=== PATIENT | male | born 1975 | race Caucasian/White ===

== ENCOUNTER → 2023-08-27 | Outpatient (REF) | payer OTHER ==
[~2023-08-27] MED LIST: ATORVASTATIN CA80 MG PO; CARVEDILOL3.125 MG PO; CHOLESTEROL MED PO; CIPRO500 MG PO; CLOPIDOGREL75 MG PO; DOXYCYCLINE HY100 MG PO; FARXIGA5 MG PO; FUROSEMIDE20 MG PO; GLIMEPIRIDE1 MG PO; JENTADUETO 2.51 EACH PO; LOSARTAN POTASS50 MG PO; PRAVASTATIN SOD10 MG PEG; TRULICITY PO; ULTRAM 50MG50 MG PO; VITAMIN D400 UNIT PO
== END ==
LOC: WCC 08:35
PROVIDERS: ATTEND Nurse Practitioner Family
DX: E11.52 Type 2 diabetes mellitus with diabetic peripheral angiopathy with gangrene (principal); E11.621 Type 2 diabetes mellitus with foot ulcer; M86.171 Other acute osteomyelitis, right ankle and foot; L97.518 Non-pressure chronic ulcer of other part of right foot with other specified severity; R60.0 Localized edema

== ENCOUNTER → 2023-09-28 | Day surgery (SDC) | payer OTHER ==
[~2023-09-28] MED LIST changes: +ASPIRIN81 MG PO; +DEXAMETHASONE SOD PHOS INJ 4 MG/ML SDV ONE; +FENTANYL CITRATE/PF 100MCG/2 ML INJ ONE; +HYDROCODONE/APAP 7.5MG-325MG 1 EA TAB ONE; +LIDOCAINE HCL 2% LOCAL INJ 5 ML SDV VIAL INJ ONE; +MEROPENEM1 GM IV; +MIDAZOLAM HCL 2 MG/2 ML VIAL ONE; +NOVOLOG100 UNIT/1 SC; +ONDANSETRON HCL INJ 2MG/ML 2ML 2 MG/ML VIAL ONE; +PROPOFOL IV EMULSION 10 MG/ML 20 ML VIAL ONE; +SEVOFLURANE INHAL SOLN 250 ML PEN BTL ONE
[2023-09-28 10:35] LABS: BASOPHILS % 0.6 % (0.0-1.0); EOSINOPHILS # (AUTO) 0.3 (0.0-0.4); EOSINOPHILS % 5.1 % (0.0-6.0); HEMATOCRIT 31.6 % (38.2-49.6); HEMOGLOBIN 10.4 g/dL (14.0-18.0); LYMPHOCYTES # (AUTO) 1.7 (1.0-3.2); LYMPHOCYTES % 31.2 % (18.0-39.1); MEAN CORPUSCULAR HEMOGLOBIN 27.1 pg (28-32); MEAN CORPUSCULAR HGB CONC 32.9 g/dL (31-35); MEAN CORPUSCULAR VOLUME 82.3 fL (81-99); MONOCYTES # (AUTO) 0.6 (0.2-0.8); MONOCYTES % 10.8 % (4.4-11.3); NEUTROPHILS # (AUTO) 2.8 (2.1-6.9); NEUTROPHILS % 51.9 % (38.7-80.0); PLATELET COUNT 248 x10e3/uL (140-360); RED BLOOD COUNT 3.84 x10e6/uL (4.3-5.7); RED CELL DISTRIBUTION WIDTH 13.6 % (11.7-14.4); WHITE BLOOD COUNT 5.45 x10e3/uL (4.8-10.8)
[2023-09-28 10:50] LABS: ANION GAP 13.4 mmol/L (8-16); CALCIUM 8.9 mg/dL (8.4-10.2); CREATININE, SERUM 1.42 mg/dL (0.72-1.25); POTASSIUM 4.4 mmol/L (3.5-5.1)
[2023-09-28] MEDS: LACTATED RINGER'S 1,000 ML ONE (13:43)
[2023-09-28 13:50] VITALS: BP 148/90; PULSE 76; RESP 17; O2SAT 98
== END | disposition home or self-care (01) ==
LOC: OR 09:32
PROVIDERS: ATTEND Podiatrist Foot Surgery
DX: I96 Gangrene, not elsewhere classified (principal); M86.9 Osteomyelitis, unspecified; G62.9 Polyneuropathy, unspecified; T14.8XXA Other injury of unspecified body region, initial encounter; E11.9 Type 2 diabetes mellitus without complications; I10 Essential (primary) hypertension; F41.9 Anxiety disorder, unspecified; E66.01 Morbid (severe) obesity due to excess calories; X58.XXXA Exposure to other specified factors, initial encounter; Z79.82 Long term (current) use of aspirin; Z79.02 Long term (current) use of antithrombotics/antiplatelets; Z79.4 Long term (current) use of insulin; Z79.84 Long term (current) use of oral hypoglycemic drugs; Z79.899 Other long term (current) drug therapy
CPT/HCPCS: 28820; 36415; 76000; 80048; 82948; 85025; 87071; 87075; 87186; 87205; 88305; 88311; J1100; J2001; J2250; J2405; J2704; J3010; J7121; 88304

== ENCOUNTER → 2023-10-12 | Outpatient (REF) | payer OTHER ==
[~2023-10-12] MED LIST changes: -DEXAMETHASONE SOD PHOS INJ 4 MG/ML SDV ONE; -FENTANYL CITRATE/PF 100MCG/2 ML INJ ONE; -HYDROCODONE/APAP 7.5MG-325MG 1 EA TAB ONE; -LIDOCAINE HCL 2% LOCAL INJ 5 ML SDV VIAL INJ ONE; -MIDAZOLAM HCL 2 MG/2 ML VIAL ONE; -ONDANSETRON HCL INJ 2MG/ML 2ML 2 MG/ML VIAL ONE; -PROPOFOL IV EMULSION 10 MG/ML 20 ML VIAL ONE; -SEVOFLURANE INHAL SOLN 250 ML PEN BTL ONE
== END ==
LOC: WCC 11:17
PROVIDERS: ATTEND Nurse Practitioner Family
DX: E11.621 Type 2 diabetes mellitus with foot ulcer (principal); E11.52 Type 2 diabetes mellitus with diabetic peripheral angiopathy with gangrene; M86.171 Other acute osteomyelitis, right ankle and foot; L97.518 Non-pressure chronic ulcer of other part of right foot with other specified severity; R60.0 Localized edema
CPT/HCPCS: 97605; 99212; G0277

== ENCOUNTER → 2023-10-16 | Outpatient (REF) | payer OTHER | LOC: WCC 08:00 | PROVIDERS: ATTEND Nurse Practitioner Family | DX: E11.621 Type 2 diabetes mellitus with foot ulcer (principal); E11.52 Type 2 diabetes mellitus with diabetic peripheral angiopathy with gangrene; M86.171 Other acute osteomyelitis, right ankle and foot; L97.518 Non-pressure chronic ulcer of other part of right foot with other specified severity; R60.0 Localized edema | CPT/HCPCS: 99213; G0277 ==